=== PATIENT | male | born 1960 | race Hispanic/Latino ===

== ENCOUNTER 2020-07-01 07:47 | Emergency (ER) | payer BC, OTHER ==
[~2020-07-01 07:47] MED LIST: METO50TA18 PO
[2020-07-01] MEDS ORDERED: ACETAMINOPHEN EXTRA STRENGTH 500 MG TABLET ONE (08:06)
[2020-07-01] MEDS ORDERED: IBUPROFEN 600 MG TABLET ONE (08:43)
[2020-07-01 09:02] LABS: BASOPHILS % (AUTO) 0.1 % (0.0-5.0); HEMATOCRIT 40.4 % (42-54); LYMPHOCYTES % (AUTO) 13.5 % (21.0-51.0); MEAN CORPUSCULAR HGB CONC 36.6 g/dL (32.0-36.0); MEAN CORPUSCULAR VOLUME 87.4 fL (79-99); MONOCYTES % (AUTO) 10.7 % (3.0-13.0); NEUTROPHILS % (AUTO) 73.4 % (40.0-77.0); PLATELET COUNT (AUTO) 143 K/uL (130-400); RED BLOOD CELL COUNT(AUTO) 4.62 MIL/uL (4.50-6.20); RED CELL DISTRIBUTION WIDTH 12.1 % (11.0-15.5); WHITE BLOOD COUNT (AUTO) 6.9 K/uL (4.8-10.8)
[2020-07-01] MEDS ORDERED: GUAIFENESIN-CODEINE 5 ML SYRUP ONE (09:14)
[2020-07-01 09:19] LABS: ALBUMIN 3.5 g/dL (3.5-5.0); BILIRUBIN,TOTAL 1.1 mg/dL (0.2-1.0); POTASSIUM 3.7 mmol/L (3.5-5.1); TOTAL PROTEIN, SERUM 6.9 g/dL (6.0-8.3)
== END 2020-07-01 09:52 | disposition home or self-care (01) ==
LOC: EDH 07:47
DX: U07.1 COVID-19 (principal); I10 Essential (primary) hypertension
CPT/HCPCS: 36415; 71045; 80053; 85025; 86140

== ENCOUNTER 2024-07-14 10:02 | Emergency (ER) | payer BC, OTHER ==
[~2024-07-14] VITALS: Ht 167.6 cm; Wt 69.4 kg
[2024-07-14 11:11] LABS: BASOPHILS # (AUTO) 0.02 K/uL (0.00-0.20); BASOPHILS % (AUTO) 0.3 % (0.0-5.0); EOSINOPHILS # (AUTO) 0.01 K/uL (0.00-0.70); EOSINOPHILS % (AUTO) 0.2 % (0.0-8.0); HEMATOCRIT 44.6 % (42-54); IMMATURE GRANULOCYTE ABSOLUTE 0.01 K/uL (0-1); LYMPHOCYTES # (AUTO) 0.9 K/uL (1.0-4.8); LYMPHOCYTES % (AUTO) 13.3 % (21.0-51.0); MEAN CORPUSCULAR HEMOGLOBIN 32.3 pg (27.0-33.0); MEAN CORPUSCULAR HGB CONC 36.1 g/dL (32.0-36.0); MEAN CORPUSCULAR VOLUME 89.4 fL (79-99); MONOCYTES # (AUTO) 0.5 K/uL (0.1-1.0); MONOCYTES % (AUTO) 8.3 % (3.0-13.0); NEUTROPHILS # (AUTO) 5.1 K/uL (1.8-7.7); NEUTROPHILS % (AUTO) 77.7 % (40.0-77.0); PLATELET COUNT (AUTO) 164 K/uL (130-400); RED BLOOD CELL COUNT(AUTO) 4.99 MIL/uL (4.50-6.20); RED CELL DISTRIBUTION WIDTH 13.1 % (11.0-15.5); WHITE BLOOD COUNT (AUTO) 6.5 K/uL (4.8-10.8)
[2024-07-14 11:21] LABS: ALBUMIN 3.9 g/dL (3.5-5.0); BILIRUBIN,TOTAL 1.5 mg/dL (0.2-1.0); CREATININE 0.9 mg/dL (0.5-1.3); TOTAL PROTEIN, SERUM 7.3 g/dL (6.0-8.3)
[2024-07-14 11:37] LABS: COVID19 (SARS ANTIGEN RAPID) PRESUMPTIVE NEGATIVE (NEGATIVE)
[2024-07-14 11:45] LABS: INFLUENZA TYPE A NEGATIVE FOR TYPE A (NEGATIVE); INFLUENZA TYPE B NEGATIVE FOR TYPE B (NEGATIVE)
[2024-07-14] MEDS: PANTOPrazole 40 MG TAB DR PO ONE (12:06)
[2024-07-14] MEDS: LIDOCAINE HCL 2% VISCOUS 15 ML UDCUP PO ONE (12:06)
[2024-07-14] MEDS: MAG/ALUM/SIMETH 30 ML UDCUP PO ONE (12:06)
[2024-07-14 12:52] LABS: APPEARANCE,URINE CLEAR (CLEAR); BILIRUBIN,URINE NEGATIVE (NEGATIVE); COLOR,URINE YELLOW (YELLOW); GLUCOSE, URINE (UA) NEGATIVE (NEGATIVE); KETONES,URINE NEGATIVE (NEGATIVE); LEUKOCYTE ESTERASE ,URINE NEGATIVE Leu/uL (NEGATIVE); MUCUS,URINE RARE LPF (None Seen); NITRATE,URINE NEGATIVE (NEGATIVE); OCCULT BLOOD,URINE MODERATE (NEGATIVE); PH,URINE 5.5 (5.0-8.0); PROTEIN,URINE 30 mg/dL (NEGATIVE); SQUAMOUS EPITHELIAL CELL,UR RARE /HPF (0-2); UROBILINOGEN,URINE 0.2 mg/dL (0.2-1.0); WBC,URINE 0-1 /HPF (0-1)
[2024-07-14] MEDS: ondanSETRON ODT 4MG TAB SL ONE (13:03)
--- NOTE | 2024-07-14 13:32 | EKG ---
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
[2024-07-14 14:32] VITALS: BP 131/95; PULSE 78; RESP 18; TEMP 98.2; O2SAT 99
--- NOTE | 2024-07-14 14:58 | ERN ---
General Chief Complaint: Abdominal Pain Stated Complaint: EPIGASTRIC PAIN Time Seen by MD: 10:07 History of Present Illness Allergies: Coded Allergies: No Known Allergies (Unverified Allergy, Unknown, 12/16/15) Home Meds Reported Medications Metoprolol Tartrate (Metoprolol Tartrate) 50 Mg Tablet, 50 MG PO BID, TAB 12/16/15 Past Medical History Past Medical History: Hypertension Past Surgical History: None Results Laboratory and Microbiology Lab and Micro Result Laboratory Tests Test 07/14/24 10:34 07/14/24 10:48 07/14/24 12:08 07/14/24 13:54 White Blood Count 6.5 K/uL (4.8-10.8) Red Blood Count 4.99 MIL/uL (4.50-6.20) Hemoglobin 16.1 g/dL (14.0-18.0) Hematocrit 44.6 % (42-54) Mean Corpuscular Volume 89.4 fL (79-99) Mean Corpuscular Hemoglobin 32.3 pg (27.0-33.0) Mean Corpuscular Hemoglobin Concent 36.1 g/dL (32.0-36.0) H Red Cell Distribution Width 13.1 % (11.0-15.5) Platelet Count 164 K/uL (130-400) Mean Platelet Volume 8.7 fL (7.5-10.5) Immature Granulocyte % (Auto) 0.2 % (0-1) Neutrophils (%) (Auto) 77.7 % (40.0-77.0) H Lymphocytes (%) (Auto) 13.3 % (21.0-51.0) L Monocytes (%) (Auto) 8.3 % (3.0-13.0) Eosinophils (%) (Auto) 0.2 % (0.0-8.0) Basophils (%) (Auto) 0.3 % (0.0-5.0) Neutrophils # (Auto) 5.1 K/uL (1.8-7.7) Lymphocytes # (Auto) 0.9 K/uL (1.0-4.8) L Monocytes # (Auto) 0.5 K/uL (0.1-1.0) Eosinophils # (Auto) 0.01 K/uL (0.00-0.70) Basophils # (Auto) 0.02 K/uL (0.00-0.20) Absolute Immature Granulocyte (auto 0.01 K/uL (0-1) Nucleated Red Blood Cells 0.0 % (0.0-0.19) Red Blood Cell Morphology ANISO 1+ Sodium Level 139 mmol/L (136-145) Potassium Level 4.0 mmol/L (3.5-5.1) Chloride Level 105 mmol/L (101-111) Carbon Dioxide Level 33 mmol/L (21-32) H Blood Urea Nitrogen 21 mg/dL (7-18) H Creatinine 0.9 mg/dL (0.5-1.3) Glomerular Filtration Rate Calc 97 mL/min (>90) Random Glucose 130 mg/dL (70-105) H Total Calcium 8.6 mg/dL (8.5-10.1) Total Bilirubin 1.5 mg/dL (0.2-1.0) H Aspartate Amino Transf (AST/SGOT) 53 U/L (10-37) H Alanine Aminotransferase (ALT/SGPT) 60 U/L (12-78) Alkaline Phosphatase 87 U/L (50-136) Total Protein 7.3 g/dL (6.0-8.3) Albumin 3.9 g/dL (3.5-5.0) Lipase 29 U/L (16-77) Influenza Type A Antigen NEGATIVE FOR TYPE A Influenza Type B Antigen NEGATIVE FOR TYPE B SARS-CoV-2 Antigen (Rapid) PRESUMPTIVE NEGATIVE Urine Color YELLOW (YELLOW) Urine Appearance CLEAR (CLEAR) Urine pH 5.5 (5.0-8.0) Urine Specific [place] 1.032 (1.001-1.031) Urine Protein 30 mg/dL (NEGATIVE) H Urine Glucose (UA) NEGATIVE mg/dL (NEGATIVE) Urine Ketones NEGATIVE mg/dL (NEGATIVE) Urine Occult Blood MODERATE (NEGATIVE) H Urine Nitrate NEGATIVE (NEGATIVE) Urine Bilirubin NEGATIVE mg/dL (NEGATIVE) Urine Urobilinogen 0.2 mg/dL (0.2-1.0) Urine Leukocyte Esterase NEGATIVE Syed/uL Urine RBC 6-10 /HPF (0-1) H Urine WBC 0-1 /HPF (0-1) Urine Squamous Epithelial Cells RARE /HPF (0-2) Urine Bacteria None /HPF (None Seen) Troponin I High Sensitivity 5 ng/L (4-75) ED Course Orders Procedure Category Date Status Time Cbc With Differential LAB 2/18/25 Complete 10:35 Comprehensive LAB 07/14/24 Complete Metabolic Panel 10:35 Lipase LAB 07/14/24 Complete 10:35 Urinalysis LAB 07/14/24 Complete W/Microscopic 10:35 Covid19 (Sars Antigen LAB 07/14/24 Complete Rapid) 10:42 Influenza Type A & B, LAB 07/14/24 Complete Rapid 10:42 Mag/Alum/Simeth 30ml PHA 07/14/24 Complete (Maalox Plus 30ml) 11:00 Lidocaine Hcl 2% PHA 07/14/24 Complete Viscous (Lidocaine Hcl 11:00 Pantoprazole 40mg Tab PHA 07/14/24 Complete (Protonix 40mg Tab 11:00 Ondansetron Odt 4mg PHA 07/14/24 Complete Tab (Zofran 4mg Odt) 13:00 Troponin I High LAB 07/14/24 Complete Sensitivity 13:21 12 Lead Ekg Tracing- EKG 07/14/24 Complete Technical 13:21 Current Medications Medications (Trade) Dose Ordered Sig/Crystal Route PRN Reason Start Time Stop Time Status Last Admin Dose Admin Al Hydroxide/Mg Hydroxide (MAALox PLUS 30ML) 30 ml ONCE ONCE PO 07/14/24 11:00 07/14/24 11:01 DC 07/14/24 12:06 Lidocaine HCl (Lidocaine HCl 2% Viscous) 10 ml ONCE ONCE PO 07/14/24 11:00 07/14/24 11:01 DC 07/14/24 12:06 Ondansetron HCl (zoFRAN 4MG ODT) 4 mg ONCE ONCE SL 07/14/24 13:00 07/14/24 13:01 DC 07/14/24 13:03 Pantoprazole Sodium (PROTonix 40MG TAB) 40 mg ONCE ONCE PO 07/14/24 11:00 07/14/24 11:01 DC 07/14/24 12:06 Vital Signs Date Time Temp Pulse Resp B/P (MAP) Pulse Ox O2 Delivery O2 Flow Rate FiO2 07/14/24 14:32 98.2 78 18 131/95 99 Room Air* 0 21 07/14/24 10:39 98.2 80 20 136/103 98 Room Air 0 DX & DISP Disposition: Discharge Departure Impression: Primary Impression: Acid reflux Condition: Stable Scripts Pantoprazole Sodium (Protonix) 20 Mg Tablet.dr 20 MG PO DAILY for 7 Days, #7 TAB Prov: GUILLERMO CARRERA 07/14/24 Additional Instructions: Discharge home. Rest. Follow up with primary care DrEstela in 24 hours. Return to the ER for any acute changes or worsening symptoms. If any medications were prescribed take as directed. Okay to continue home medications unless otherwise discussed during your visit in the emergency room today. Patient was also advised to follow-up with primary care physician in 1 to 2 days for continued monitoring. Referrals: CUONG RO MD (PCP) I participated in the following activities of this patient's care: For this patient encounter, I reviewed the PA or MANAGER STRATEGY documentation, treatment plan, and medical decision making. I did not have [id number] time with this patient. I will sign as the reviewing And agree with the treatment plan and disposition. GUILLERMO CARRERA Jul 14, 2024 14:58
[2024-07-14] MEDS ORDERED: PANT20TA PO (15:02)
== END 2024-07-14 15:13 | disposition home or self-care (01) ==
LOC: EDH 10:02
DX: K21.9 Gastro-esophageal reflux disease without esophagitis (principal); I10 Essential (primary) hypertension; Z79.899 Other long term (current) drug therapy; Z20.822 Contact with and (suspected) exposure to COVID-19
CPT/HCPCS: 36415; 80053; 81001; 83690; 84484; 85025; 87426; 87804; 93005; 99284